=== PATIENT | female | born 1990 | race American Indian/Alaskan Native ===

== ENCOUNTER 2017-04-15 11:44 | Inpatient (IN) | payer MEDICAID ==
[~2017-04-15 11:44] MED LIST: Carboprost Tromethamine 250 MCG/1 ML Amp IM ONE; Methylergonovine 0.2 MG/1 ML Amp IM ONE; Morphine PF 1 MG/ML Amp ONE; Ondansetron 4 MG/2 ML SDV IV ONE; Oxytocin/Normal Saline 30 UNIT/500 ML BAG IV ONE; Phenylephrine 1% 10 MG/ML SDV IV ONE; Sodium Chloride 0.9% 10 ML Syringe IV ONE; ePHEDrine 50 MG/ML SDV IV ONE; fentaNYL 100 MCG/2 ML SDV ONE
[2017-04-15] MEDS ORDERED: Oxytocin/Normal Saline 60 UNIT/1,000 ML BAG ONE (12:02)
[2017-04-15] MEDS ORDERED: Carboprost Tromethamine 250 MCG/1 ML Amp IM ONE (12:03)
[2017-04-15] MEDS ORDERED: diphenhydrAMINE 50 MG/ML SDV IVPUSH PRN (12:03)
[2017-04-15] MEDS ORDERED: ceFAZolin 2 GM in Premix Bag 1 BAG IV ONE (12:03)
[2017-04-15] MEDS ORDERED: Acetaminophen 325 MG Tab PO PRN (12:03)
[2017-04-15] MEDS ORDERED: Ondansetron 4 MG/2 ML SDV IV PRN (12:03)
[2017-04-15] MEDS ORDERED: Methylergonovine 0.2 MG/1 ML Amp IM PRN (12:03)
[2017-04-15] MEDS ORDERED: ePHEDrine 50 MG/ML SDV IVPUSH PRN (12:03)
[2017-04-15] MEDS ORDERED: Misoprostol 400 MCG (4 X 100 MCG TAB) RECTAL PRN (12:03)
[2017-04-15] MEDS ORDERED: Naloxone 2 MG/2 ML Syringe IVPUSH PRN (12:03)
[2017-04-15] MEDS ORDERED: Acetaminophen/oxyCODONE 325-5 MG Tab PO PRN (12:03)
[2017-04-15] MEDS ORDERED: Diphtheria,Pertussis(Acell),Tetanus Vaccine 0.5 ML SDV IM ONE (12:03)
[2017-04-15] MEDS ORDERED: Morphine PF 1 MG/ML Amp ONE (12:07)
[2017-04-15] MEDS ORDERED: fentaNYL 100 MCG/2 ML SDV ONE (12:07)
[2017-04-15] MEDS ORDERED: Phenylephrine 1% 10 MG/ML SDV ONE (12:08)
[2017-04-15] MEDS ORDERED: Propofol 200 MG/20 ML SDV ONE (12:08)
[2017-04-15] MEDS ORDERED: Succinylcholine 200 MG/10 ML MDV ONE (12:09)
[2017-04-15] MEDS ORDERED: Sodium Chloride 0.9% 100 ML ONE (12:09)
[2017-04-15] MEDS ORDERED: Glycopyrrolate 0.2 MG/ML 2 ML SDV ONE (12:09)
[2017-04-15] MEDS ORDERED: Oxytocin/Normal Saline 30 UNIT/500 ML BAG IV SCH (12:15)
[2017-04-15] MEDS ORDERED: Methylergonovine 0.2 MG/1 ML Amp ONE (13:25)
[2017-04-15] MEDS ORDERED: Carboprost Tromethamine 250 MCG/1 ML Amp ONE (13:25)
[2017-04-15] MEDS ORDERED: Misoprostol 400 MCG (4 X 100 MCG TAB) ONE (13:28)
[2017-04-15] MEDS ORDERED: Misoprostol 400 MCG (4 X 100 MCG TAB) RECTAL ONE (13:30)
[2017-04-15] MEDS ORDERED: Oxytocin/Normal Saline 30 UNIT/500 ML BAG ONE (13:36)
[2017-04-15] MEDS: Lactated Ringers 1,000 ML IV SCH ×4 (14:10→21:45)
--- NOTE | 2017-04-15 15:13 | OBOUT ---
DATE: 04/15/2017 DATE AND TIME OF NST: Date: 04/15/2017. Time: 12:10 to 12:30. REASON FOR NST: 1. Intrauterine at 39 and 5/7 weeks. 2. Limited/insufficient care. 3. Previous , requests repeat low transverse . 4. Contractions. 5. Suspected cervical change. 6. History of fast labors and deliveries. 7. History of with breech presentation with precipitous delivery in the past. 8. Urinary tract infection-Escherichia coli in the first trimester. 9. Positive UDS for THC earlier in the . 10.Hepatitis C antibody positive. 11.G4, P2-1-0-3. NST INTERPRETATION: During this time period, tone baseline is approximately 140, and there are no accelerations noted during this time period, except for the possibility of 1 at the beginning of this nonstress test. It appears to be 15 x 15 beats per minute accelerations. Tocometer reveals 5 contractions. ASSESSMENT: 1. NST nonreactive by strict criteria concerns with variability are noted as well. 2. Tocometer with contractions. PLAN: Due to nonreassuring status, limited/insufficient care, history of fast labors and deliveries to the point that she had a with breech presentation, and previous x1, request repeat low transverse C- section. I will proceed to the OR as soon as crew is ready and available. IVs have been started. Monitoring will continue. We will await OR and proceed with as soon as possible. I did discuss with her risks, benefits, alternatives, and complication of including, but not limited to infection, bleeding, damage to internal organs such as bowel, bladder, tubes, uterus, ovaries, sometimes fetus, rarely needing blood transfusion or further surgery, and rare maternal or . She understands and agrees and wishes to proceed. Verbal and written consent obtained. Questions were answered. We will proceed as soon as OR crew is ready and available. [facility] /[id number]
[2017-04-15] MEDS: Ketorolac 30 MG/ML SDV IVPUSH SCH (18:10)
[2017-04-15] MEDS: Ferrous Sulfate 325 MG Tab PO SCH (18:30)
[2017-04-15] MEDS: Acetaminophen/oxyCODONE 325-5 MG Tab PO PRN (20:30)
[2017-04-15] MEDS: Docusate Sodium 100 MG Cap PO PRN (21:45)
[2017-04-16] MEDS: Ketorolac 30 MG/ML SDV IVPUSH SCH ×2 (00:27→06:29)
[2017-04-16] MEDS: Acetaminophen/oxyCODONE 325-5 MG Tab PO PRN ×5 (03:03→22:27)
--- NOTE | 2017-04-16 06:44 | PN ---
DATE: 04/16/2017 SUBJECTIVE: The patient did well overnight. She has had no issues per herself or nursing staff. She has been on bed rest and therefore has not ambulated. Her pain has been well controlled. She has had no lightheadedness or dizziness. She has no complaints this morning. Lochia is about the same as a period. OBJECTIVE: Vital Signs: Stable. She is afebrile. She did have 1 dip of hypotension throughout the night; however, did come back to normal. General: Alert and oriented x3, in no acute distress this morning. Resting comfortably in her hospital bed upon entering the room. Cardiac: Regular rate and rhythm. Pulmonary: No tachypnea or cyanosis noted. No increased working of breath. Abdomen: Appropriately tender. Some shadowing present on the right side of her incision dressing. Her fundus is approximately level of the umbilicus. There is no distention noted. Non-peritonitic. Extremities: No extremity swelling. No pedal edema noted. LABORATORY DATA: Platelets have remained within normal limits. Hemoglobin has trended from 11.0 preoperatively to 11.0 and 9.2 postoperatively thus far. We will check another one again today and again tomorrow to continue trend. ASSESSMENT AND PLAN: Josie Cervantes is in postop day #1 status post repeat section with uterine atony, requiring Methergine, Hemabate, Cytotec, and Pitocin and a box stitch intraoperatively. Her urine output has remained adequate having over 2 L overnight. She did have 1 bout of hypotension; therefore, we will watch her closely. We will continue to check her hemoglobins on a daily basis and increase frequency of concern. We will remove Kimble today, up and moving within the room and ambulating. Adequate pain control. Anticipate routine discharge. seen and agreed-GERDA MODL /[id number] MTDKristine
[2017-04-16] MEDS: Ferrous Sulfate 325 MG Tab PO SCH (08:27)
[2017-04-16] MEDS: Simethicone 80 MG Tab.Chew PO PRN ×3 (08:27→18:37)
[2017-04-16] MEDS: Prenatal Multivitamin with Calcium/Folic Acid/Iron Tab PO SCH (08:27)
[2017-04-16] MEDS: Docusate Sodium 100 MG Cap PO PRN ×2 (08:27→18:37)
[2017-04-16] MEDS ORDERED: Diphtheria,Pertussis(Acell),Tetanus Vaccine 0.5 ML SDV IM ONE (10:07)
[2017-04-16] MEDS: Ibuprofen 800 MG Tab PO PRN ×2 (14:29→22:26)
--- NOTE | 2017-04-16 19:34 | PCM.POSTAN ---
POST ANESTHESIA ASSESSMENT - MENTAL STATUS Mental Status: Alert - VITAL SIGNS Pulse Rate: 61 SaO2: 97 Resp Rate: 16 Blood Pressure: 90/52 Temperature: 37 C - RESPIRATORY Respiratory Status: Respiratory Rate WNL - CARDIOVASCULAR CV Status: Pulse Rate WNL - GASTROINTESTINAL GI Status: No Symptoms - POST OP HYDRATION Hydration Status: Adequate & Stable - OBSERVATIONS Free Text/Narrative:: Pt without c/o. No c/o PONV, no c/o PDPH, no persistent paresthesias, no c/o back pain,no post anesthesia complications noted.
[2017-04-17] MEDS: Acetaminophen/oxyCODONE 325-5 MG Tab PO PRN ×5 (02:37→23:32)
[2017-04-17] MEDS: Prenatal Multivitamin with Calcium/Folic Acid/Iron Tab PO SCH (08:21)
[2017-04-17] MEDS: Ferrous Sulfate 325 MG Tab PO SCH (08:21)
[2017-04-17] MEDS: Docusate Sodium 100 MG Cap PO PRN ×2 (08:22→19:23)
[2017-04-17] MEDS: Ibuprofen 800 MG Tab PO PRN ×2 (08:22→17:15)
[2017-04-17] MEDS: Simethicone 80 MG Tab.Chew PO PRN (19:22)
[2017-04-18] MEDS: Ibuprofen 800 MG Tab PO PRN (02:34)
[2017-04-18] MEDS: Acetaminophen/oxyCODONE 325-5 MG Tab PO PRN ×2 (03:58→09:09)
[2017-04-18] MEDS: Docusate Sodium 100 MG Cap PO PRN (09:08)
[2017-04-18] MEDS: Prenatal Multivitamin with Calcium/Folic Acid/Iron Tab PO SCH (09:08)
[2017-04-18] MEDS: Simethicone 80 MG Tab.Chew PO PRN (09:09)
[2017-04-18] MEDS: Ferrous Sulfate 325 MG Tab PO SCH (09:09)
--- NOTE | 2017-04-18 09:50 | PN ---
DATE: 04/17/2017 SUBJECTIVE: No acute events since rounding last. Her blood pressures have been borderline by nursing staff, however, she is asymptomatic without lightheadedness or dizziness. She is moving about and ambulating without issue. She is making adequate urine over 1800 mL per nursing. She is tolerating a diet without nausea or vomiting. Her discharge is manageable. OBJECTIVE: Vital Signs: Temperature is 36.8, heart rate 73, blood pressure 91/54, respirations 16, and pulse ox 99% on room air. General: Alert and orientated x3. Sleeping upon entering the room. Cardiac: Regular rate and rhythm. Pulmonary: No tachypnea or cyanosis noted. No increased working of breath. Abdomen: Soft, appropriately tender. Mild shadowing noted on the right side. Stable from previous exam. Uterus just inferior to the umbilicus. Extremities: No pedal edema noted. LABORATORY DATA: Urine output 1860 mL. Hemoglobin 9.0 from 9.2 the day prior, white blood cell count is 8.5, and platelets are 183. ASSESSMENT AND PLAN: Josie Cervantes is postop day #2 status post repeat section. She continues to do well at this time making adequate urine and is asymptomatic from her acute blood loss anemia secondary to hemorrhage. We will continue to watch her closely. Her blood pressure has been on the lower end of normal. However, again, we will continue to watch this as she has been asymptomatic and her heart rate is otherwise within normal limits. We will continue present management at this time. To be discussed with Dr. Hicks. seen and agreed-[facility] /[id number] JCARLOS
--- NOTE | 2017-04-18 09:59 | OR ---
DATE OF OPERATION: 04/15/2017 PREOPERATIVE DIAGNOSES: 1. Intrauterine at 39 weeks 5 days consistent with an 18-week ultrasound. 2. Previous low-transverse section. 3. Contractions. 4. Cervical change. 5. History of expeditious labor with a history of a vaginal after , secondary to insufficient care. 6. Urinary tract infection, Escherichia coli, complicating first-trimester . 7. Positive urinary drug screen for THC. 8. Hepatitis C antibody positive. 9. Limited and insufficient care. 10.G4, P2-1-0-3. POSTOPERATIVE DIAGNOSES: 1. Intrauterine at 39 weeks 5 days consistent with an 18-week ultrasound. 2. Previous low-transverse section. 3. Contractions. 4. Cervical change. 5. History of expeditious labor with a history of a vaginal after , secondary to insufficient care. 6. Urinary tract infection, Escherichia coli, complicating first-trimester . 7. Positive urinary drug screen for THC. 8. Hepatitis C antibody positive. 9. Limited and insufficient care. 10.G4, P3-1-0-4. PRIMARY SURGEON: Jony Hicks MD PHP ARCHITECT SURGEON: Luther Campbell PGY-III POSTOPERATIVE ATONY: Requiring Methergine, Hemabate, Cytotec, and B-Bernal box stitch. ESTIMATED BLOOD LOSS: 1200 ml. FLUIDS GIVEN: One liter of normal saline with Pitocin and 1 L of lactated Ringer. URINE OUTPUT: 150 mL. TIME: Start time is 1318 hours. End time is 1355 hours. 1324 hours for uterine incision and delivery time was 1325 hours. INTRAOPERATIVE FINDINGS: scores of 8 and 9 with a delivery of a normal female. INDICATION FOR PROCEDURE: Josie Cervantes is a 26-year-old female who presents with contractions and cervical change in 39 weeks 5 days with a history of a previous section and . She presented to the clinic for her routine care setting. She was ready to deliver a baby in which she was beyond 39 weeks with an inconsistent care, we elected to perform an elective repeat section. She was in agreement and wished to proceed with surgery at this time. DETAILS OF PROCEDURE: The patient was brought to the operating room, given spinal anesthetic. She was placed supine with a bump under the right side in a slight left lateral decubitus position. She was prepped and draped in standard sterile fashion. A procedural time-out was performed, and all were in agreement. Kimble was placed prior to draping. A low transverse Pfannenstiel incision was made through the skin. Electrocautery was used to dissect down to the fascia. The fascia was scored and opened laterally using Pendleton scissors with slight tilting towards this was found. The fascia was retracted off the muscle layer superiorly and then inferiorly down to the pubic bone. The muscles were then , and the peritoneum was bluntly opened. This was manually stretched open. Ramon retractor was placed. A low transverse uterine incision was made. No bladder flaps were needed to be created as it was not high on the uterus. The incision was made through the superficial portions of the uterus bluntly using manual entrance into the uterus. A blunt dissection was used to open the uterine incision laterally, and the was then delivered through the uterine incision. The cord was doubly clamped, cut, and transected. The was handed off to Dr. Blackburn and the Nursery team. Cord blood was obtained. Manual massage and Pitocin were given. The placenta was unable to be removed with traction. Therefore, manual removal was performed. The placenta removed intact. The uterus was debrided using a lap pad. The cervix was open inferiorly. The uterus was closed with #1 Vicryl in a running locking fashion. The second layer and imbricating layer were also performed with #1 Vicryl. There was some bleeding at the right side of the uterine incision which did require a 2-0 iopnmy-ll-cihtj stitch. The uterus continued to be atonic throughout this. Therefore, she received Hemabate, Methergine, Cytotec, and as well as remaining injection of Methergine into the uterus. This was still inadequate. Therefore, a B bernal box stitch was placed around the uterus to keep it compressed. It was then started to have a minimal tone to the uterus. There was some vaginal blood noted by the residential real estate assistant placing the Cytotec in the rectum. There was no obvious intraabdominal bleeding noted. Therefore, a [id number]-uc-[id number] stitch was placed in the peritoneum, and the fascia was closed with running 0 looped PDS x2 tying in the middle. Subcutaneous bleeding was obtained using electrocautery. Ady were used to reapproximate the skin edges. An [email or web address] was placed for dressing over top. The patient was transferred to PACU in stable condition by minimally tachycardic in the high 90s, and her blood pressures remained about 100 in the systolics. We will watch her closely as there is a high concern for continued ongoing bleeding and may require transfer of level of care if she continues to bleed. Dr. Jony Hicks was present, scrubbed, and directed all portions of this procedure. [facility] /[id number] MTDD
[2017-04-18 15:19] VITALS: BP 101/64
--- NOTE | 2017-04-19 03:08 | DISCH ---
DATE OF ADMISSION: 04/15/2017 DATE OF DISCHARGE: 04/18/2017 DISCHARGE DIAGNOSES: 1. Intrauterine at 39 weeks and 5 days consistent with 18 week 2 day ultrasound. Previous section with request for repeat low- transverse section. 2. Contractions. 3. Cervical change. 4. History of precipitous labor and deliveries and history of with breech presentation with her last . 5. Urinary tract infection complicating growing E coli. 6. Positive urinary drug screen for THC. 7. Hepatitis C antibody positive. 8. Limited and insufficient care. 9. G4, P2-1-0-3. 10.Uterine atony requiring Methergine, Hemabate, Cytotec, and B laws box stitch. PROCEDURE: section. DIET: Regular. ACTIVITY: Limited activity until followup appointment. No lifting more than 10 pounds. FOLLOWUP: Staple removal in 1 week; in [address] Hicks. HOSPITAL COURSE: The patient presented to the clinic at 39 weeks 5 days with a history of repeat caesarean section with cervical change and contractions. She was transferred over to the hospital and taken for section following discussion of the risks and benefits. section was complicated by uterine atony, requiring Methergine, Hemabate, Cytotec and a box stitch. Postoperatively, she did well. Her hemoglobins were trended in which there was down trend, however, not a significant jump at one time. She was tolerating a diet without any issues. She is up and moving about in her room. She was urinating following removal of her Kimble catheter. Her pain was well controlled. She was discharged on postoperative day #3. Follow up as listed above. seen and agreed with resident-GERDA MODL /[id number] JCARLOS
== END 2017-04-18 13:30 | disposition home or self-care (01) | DRG 765 ==
LOC: DL.OBCHECK 11:44 → UNDOADMIN 11:46 → DL.MS 11:46 → EEVIPCON 13:25 → DL.MS 13:25 → DL.OB 04-18 13:25 → UNDODISIN 04-18 13:30
PROVIDERS: ADMIT Family Medicine; ATTEND Family Medicine
PROC: 10D00Z1 Extraction of Products of Conception, Low, Open Approach (ICD-10-PCS; principal; 2017-04-15)
PROC: 4A1HXFZ Monitoring of Products of Conception, Cardiac Rhythm, External Approach (ICD-10-PCS; 2017-04-15)
PROC: 3E0R3BZ Introduction of Anesthetic Agent into Spinal Canal, Percutaneous Approach (ICD-10-PCS; 2017-04-15)
PROC: 3E0234Z Introduction of Serum, Toxoid and Vaccine into Muscle, Percutaneous Approach (ICD-10-PCS; 2017-04-15)
DX: O34.211 Maternal care for low transverse scar from previous cesarean delivery (principal); O72.1 Other immediate postpartum hemorrhage; O98.42 Viral hepatitis complicating childbirth; O99.324 Drug use complicating childbirth; O09.33 Supervision of pregnancy with insufficient antenatal care, third trimester; B19.20 Unspecified viral hepatitis C without hepatic coma; F12.90 Cannabis use, unspecified, uncomplicated; Z23 Encounter for immunization; Z37.0 Single live birth; Z3A.39 39 weeks gestation of pregnancy
CPT/HCPCS: 01961; 36415; 80305; 85025; 85027; 86850; 86900; 86901; 86920; 86922; 90715; A9270-GY; J0690; J1885; J2210; J2274; J2370; J2405; J2590; J3010; J7050; J7120

== ENCOUNTER 2017-10-07 08:42 | Emergency (ER) | payer MEDICAID ==
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
[2017-10-07 10:05] LABS: ANION GAP 12.8; CHLORIDE,CL 101 mmol/L (101-111); SODIUM,NA 134 mmol/L (135-145)
[2017-10-07 10:09] VITALS: BP 113/72
== END 2017-10-07 10:34 | disposition home or self-care (01) ==
LOC: DL.ED 08:42
DX: J06.9 Acute upper respiratory infection, unspecified (principal); F17.210 Nicotine dependence, cigarettes, uncomplicated
CPT/HCPCS: 36415; 80053; 85025; 87804; 99284

== ENCOUNTER 2018-12-31 11:06 | Emergency (ER) | payer MEDICAID, SELFPAY ==
[2018-12-31 11:13] VITALS: BP 106/74
--- NOTE | 2018-12-31 11:22 | EDM.PDOC ---
ED HPI GENERAL MEDICAL PROBLEM - General Chief Complaint: Fever Stated Complaint: SICK FOR A WEEK, NOT GETTING ANY BETTER Time Seen by Provider: 12/31/18 11:21 Source of Information: Reports: Patient, RN, RN Notes Reviewed History Limitations: Reports: No Limitations - History of Present Illness INITIAL COMMENTS - FREE TEXT/NARRATIVE: Pt to ER with c/o fever, chills, nasal congestion, sore throat, cough, nausea for over 1 week. She states everyone in her house is sick. She states she has been taking Mucinex but denies use of Tylenol or Ibuprofen. Denies diarrhea or vomiting. Onset: Gradual Duration: Constant, Getting Worse Location: Reports: Head, Chest - Related Data Allergies Allergy/AdvReac Type Severity Reaction Status Date / Time No Known Allergies Allergy Unverified 10/07/17 08:58 Home Meds: Home Meds . 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 x2 Musculoskeletal History: Reports: None Neurological History: Reports: None Psychiatric History: Reports: Depression Endocrine/Metabolic History: Reports: None Hematologic History: Reports: None Immunologic History: Reports: None Oncologic (Cancer) History: Reports: None Dermatologic History: Reports: None - Infectious Disease History Infectious Disease History: Reports: Hepatitis C - Past Surgical History Head Surgeries/Procedures: Reports: None Female Surgical History: Reports: Section, Dilitation & Evacuation Social & Family History - Family History Family Medical History: Noncontributory - Tobacco Use Smoking Status *Q: Never Smoker - Caffeine Use Caffeine Use: Reports: None - Recreational Drug Use Recreational Drug Use: Yes Recreational Drug Type: Reports: Marijuana/Hashish Recreational Drug Use Frequency: Socially ED ROS ENT - Review of Systems Review Of Systems: ROS reveals no pertinent complaints other than HPI. ED EXAM, ENT - Physical Exam Exam: See Below Exam Limited By: No Limitations General Appearance: Alert, WD/WN, Mild Distress Eye Exam: Bilateral Eye: EOMI, Normal Inspection Ears: Normal External Exam, Normal Canal, Hearing Grossly Normal, TM Dullness Nose: Normal Inspection, Clear Rhinorrhea Mouth/Throat: Normal Inspection, Normal Gums, Normal Lips, Normal Oropharynx, Normal Teeth Head: Atraumatic, Normocephalic Neck: Normal Inspection, Supple, Non-Tender, Full Range of Motion Respiratory/Chest: No Respiratory Distress, Lungs Clear, Normal Breath Sounds, No Accessory Muscle Use, Chest Non-Tender Cardiovascular: Normal Peripheral Pulses, Regular Rate, Rhythm, No Edema, No Gallop, No JVD, No Murmur, No Rub GI/Abdominal: Normal Bowel Sounds, Soft, Non-Tender (Female) Exam: Deferred Rectal (Female) Exam: Deferred Back: Normal Inspection, Full Range of Motion Extremities: Normal Inspection, Normal Range of Motion, Non-Tender, No Pedal Edema, Normal Capillary Refill Neurological: Alert, Oriented, CN II-XII Intact, Normal Cognition, Normal Gait, Normal Reflexes, No Motor/Sensory Deficits Psychiatric: Normal Affect, Normal Mood Skin: Warm, Dry, Intact, Normal Color, No Rash Lymphatic: No Adenopathy Course - Vital Signs Last Recorded V/S: Last Vital Signs Temp 97.7 F 12/31/18 11:10 Pulse 98 12/31/18 11:10 Resp 16 12/31/18 11:10 BP 106/74 12/31/18 11:10 Pulse Ox 99 12/31/18 11:10 - Orders/Labs/Meds Labs: Influenza A: Negative Influenza B: Negative Departure - Departure Time of Disposition: 11:51 Disposition: Home, Self-Care 01 Condition: Fair Clinical Impression: Sinusitis Qualifiers: Sinusitis location: unspecified location Chronicity: acute Recurrence: not specified as recurrent Qualified Code(s): J01.90 - Acute sinusitis, unspecified - Discharge Information *PRESCRIPTION DRUG MONITORING PROGRAM REVIEWED*: No *COPY OF PRESCRIPTION DRUG MONITORING REPORT IN PATIENT LANCE: No Instructions: Sinusitis, Adult, [id number] Forms: ED Department Discharge Additional Instructions: May use Tylenol and/or Ibuprofen as directed for pain/fever Drink plenty of water RX: Augmentin Follow up with your primary care facility of no improvement
[2018-12-31] MEDS ORDERED: Amoxicillin/Clavulanate K 875-125 MG Tab PO ONE (11:54)
[2018-12-31] MEDS ORDERED: Amoxicillin/Clavulanate K 875-125 MG Tab ONE (11:55)
== END 2018-12-31 12:00 | disposition home or self-care (01) ==
LOC: DL.ED 11:06
DX: J01.90 Acute sinusitis, unspecified (principal)
CPT/HCPCS: 87804; 99283; A9270

== ENCOUNTER 2022-04-23 20:29 | Emergency (ER) | payer MEDICAID ==
[2022-04-23 21:32] LABS: ANION GAP 14.6 mEq/L (7-13); CHLORIDE,CL 101 mmol/L (98-107); SODIUM,NA 137 mmol/L (136-145)
[2022-04-23 21:37] LABS: ESTIMATED GFR 104 mL/min (>=60)
[2022-04-23 21:38] LABS: AMPHETAMINES,URINE NEGATIVE (NEGATIVE); BARBITURATES,URINE NEGATIVE (NEGATIVE); BENZODIAZEPINE,URINE NEGATIVE (NEGATIVE); MDMA (ECSTASY), URINE NEGATIVE (NEGATIVE); METHADONE,URINE NEGATIVE (NEGATIVE); METHAMPHETAMINES,URINE NEGATIVE (NEGATIVE); OPIATES,URINE NEGATIVE (NEGATIVE); OXYCODONE,URINE NEGATIVE (NEGATIVE); PHENCYCLIDINE,URINE NEGATIVE (NEGATIVE); TCA,URINE NEGATIVE (NEGATIVE)
[2022-04-23 22:00] LABS: CORONAVIRUS COVID-19 NAA NEGATIVE (NEGATIVE)
[2022-04-23] MEDS ORDERED: Iopamidol 612 MG/ML 100 ML Bottle IVPUSH ONE (22:30)
[2022-04-24] MEDS ORDERED: Piperacillin/Tazobactam 3.375 GM in Sodium Chloride 0.9% 100 ML IV ONE (00:28)
[2022-04-24] MEDS ORDERED: Sodium Chloride 0.9% 1,000 ML IV ONE (00:28)
[2022-04-24 01:08] VITALS: BP 106/75; PULSE 62
== END 2022-04-24 01:06 ==
LOC: DL.ED 20:29
DX: K35.30 Acute appendicitis with localized peritonitis, without perforation or gangrene (principal); Z86.16 Personal history of COVID-19; Z87.891 Personal history of nicotine dependence; Z20.822 Contact with and (suspected) exposure to COVID-19
CPT/HCPCS: 0240U; 36415; 74177; 80053; 80305-QW; 81025; 82150; 83690; 85025; 96374; 99284; 99285-25; J2543; J7030; Q9967

== ENCOUNTER 2023-04-11 01:33 | Inpatient (IN) | payer MEDICAID ==
[2023-04-11] MEDS: Lactated Ringers 1,000 ML IV SCH ×4 (02:00→13:17)
[2023-04-11 02:02] LABS: HEMATOCRIT 36.3 % (37.0-47.0); HEMOGLOBIN 11.9 g/dL (12.0-16.0); MEAN CORPUSCULAR HGB CONC 32.8 g/dL (33.0-35.0); MEAN CORPUSCULAR VOLUME 94.5 fL (80-100); RED BLOOD CELL COUNT 3.84 10^6/uL (4.2-5.4); WHITE BLOOD CELL COUNT,WBC 9.9 10^3/uL (5.0-10.0)
[2023-04-11] MEDS ORDERED: Misoprostol 400 MCG (4 X 100 MCG TAB) RECTAL PRN (02:14)
[2023-04-11] MEDS ORDERED: Naloxone 2 MG/2 ML Syringe IVPUSH PRN (02:14)
[2023-04-11] MEDS ORDERED: Methylergonovine 0.2 MG/1 ML Amp IM PRN (02:14)
[2023-04-11] MEDS ORDERED: Acetaminophen/oxyCODONE 325-5 MG Tab PO PRN (02:14)
[2023-04-11] MEDS ORDERED: Ondansetron 4 MG/2 ML SDV IVPUSH PRN (02:14)
[2023-04-11] MEDS ORDERED: Carboprost Tromethamine 250 MCG/1 ML Amp IM PRN (02:14)
[2023-04-11] MEDS ORDERED: Acetaminophen 325 MG Tab PO PRN (02:14)
[2023-04-11] MEDS ORDERED: ePHEDrine 50 MG/ML SDV IVPUSH PRN (02:14)
[2023-04-11] MEDS ORDERED: diphenhydrAMINE 50 MG/ML SDV IVPUSH PRN (02:14)
[2023-04-11] MEDS ORDERED: ceFAZolin 2 GM Vial IVPUSH ONE (02:14)
[2023-04-11] MEDS ORDERED: Tranexamic Acid 1,000 MG in Sodium Chloride 0.9% 100 ML IV PRN (02:14)
[2023-04-11] MEDS ORDERED: Lactated Ringers 1,000 ML IV SCH (02:15)
[2023-04-11] MEDS ORDERED: Ketorolac 30 MG/ML SDV IVPUSH SCH (02:30)
[2023-04-11] MEDS ORDERED: Oxytocin/Normal Saline 30 UNIT/500 ML BAG IV SCH (02:30)
[2023-04-11 02:40] LABS: AMPHETAMINES,URINE NEGATIVE (NEGATIVE); BARBITURATES,URINE NEGATIVE (NEGATIVE); BENZODIAZEPINE,URINE NEGATIVE (NEGATIVE); MDMA (ECSTASY), URINE NEGATIVE (NEGATIVE); METHADONE,URINE NEGATIVE (NEGATIVE); METHAMPHETAMINES,URINE NEGATIVE (NEGATIVE); OPIATES,URINE NEGATIVE (NEGATIVE); OXYCODONE,URINE NEGATIVE (NEGATIVE); PHENCYCLIDINE,URINE NEGATIVE (NEGATIVE); TCA,URINE NEGATIVE (NEGATIVE)
[2023-04-11] MEDS ORDERED: Ketorolac 30 MG/ML SDV IVPUSH ONE (05:24)
[2023-04-11] MEDS: Simethicone 80 MG Tab.Chew PO SCH ×4 (09:31→23:19)
[2023-04-11] MEDS: Prenatal Multivitamin with Calcium/Folic Acid/Iron Tab PO SCH (09:31)
[2023-04-11] MEDS: Ketorolac 30 MG/ML SDV IVPUSH SCH ×3 (11:30→23:19)
[2023-04-11] MEDS: Docusate Sodium 100 MG Cap PO PRN (23:19)
[2023-04-11] MEDS: Acetaminophen/oxyCODONE 325-5 MG Tab PO PRN (23:19)
[2023-04-12] MEDS: Acetaminophen/oxyCODONE 325-5 MG Tab PO PRN ×4 (03:25→20:31)
[2023-04-12 06:09] LABS: HEMATOCRIT 28.6 % (37.0-47.0); HEMOGLOBIN 9.3 g/dL (12.0-16.0); MEAN CORPUSCULAR HEMOGLOBIN 31.3 pg (27.0-34.0); MEAN CORPUSCULAR HGB CONC 32.5 g/dL (33.0-35.0); MEAN CORPUSCULAR VOLUME 96.3 fL (80-100); RED BLOOD CELL COUNT 2.97 10^6/uL (4.2-5.4); WHITE BLOOD CELL COUNT,WBC 10.1 10^3/uL (5.0-10.0)
[2023-04-12] MEDS: Simethicone 80 MG Tab.Chew PO SCH ×5 (07:34→20:31)
[2023-04-12] MEDS: Docusate Sodium 100 MG Cap PO PRN ×2 (07:35→20:31)
[2023-04-12] MEDS: Ibuprofen 800 MG Tab PO PRN ×2 (07:35→17:26)
[2023-04-12] MEDS: Prenatal Multivitamin with Calcium/Folic Acid/Iron Tab PO SCH ×2 (07:35→08:38)
[2023-04-13] MEDS: Ibuprofen 800 MG Tab PO PRN (02:07)
[2023-04-13] MEDS: Acetaminophen/oxyCODONE 325-5 MG Tab PO PRN ×3 (04:36→13:00)
[2023-04-13] MEDS: Prenatal Multivitamin with Calcium/Folic Acid/Iron Tab PO SCH (08:47)
[2023-04-13] MEDS: Docusate Sodium 100 MG Cap PO PRN (08:47)
[2023-04-13] MEDS: Simethicone 80 MG Tab.Chew PO SCH ×2 (08:49→13:01)
[2023-04-13 15:26] VITALS: BP 113/75; PULSE 77
[2023-04-13] MEDS ORDERED: EPINEPHrine 1 MG/ML SDV ONE (15:38)
[2023-04-13] MEDS ORDERED: Ondansetron 4 MG/2 ML SDV IV ONE (15:38)
[2023-04-13] MEDS ORDERED: Famotidine 20 MG/2 ML SDV IV ONE (15:38)
[2023-04-13] MEDS ORDERED: Tranexamic Acid 1,000 MG in Sodium Chloride 0.9% 100 ML IV ONE (15:38)
[2023-04-13] MEDS ORDERED: Sodium Chloride 0.9% 20 ML SDV ONE (15:38)
[2023-04-13] MEDS ORDERED: fentaNYL 100 MCG/2 ML SDV ONE (15:38)
[2023-04-13] MEDS ORDERED: ceFAZolin 2 GM Vial IVPUSH ONE (15:38)
[2023-04-13] MEDS ORDERED: Dexamethasone 4 MG/ML SDV IV ONE (15:38)
== END 2023-04-13 15:39 | disposition home or self-care (01) | DRG 787 ==
LOC: DL.OBCHECK 01:33 → DL.OB 01:52 → OBSVTOIN 03:10 → DL.OB 03:10
PROVIDERS: ADMIT Family Medicine; ATTEND Family Medicine
PROC: 10D00Z1 Extraction of Products of Conception, Low, Open Approach (ICD-10-PCS; principal; 2023-04-11)
DX: O42.02 Full-term premature rupture of membranes, onset of labor within 24 hours of rupture (principal); O99.324 Drug use complicating childbirth; F12.90 Cannabis use, unspecified, uncomplicated; O43.813 Placental infarction, third trimester; Z3A.37 37 weeks gestation of pregnancy; O34.211 Maternal care for low transverse scar from previous cesarean delivery; O69.81X0 Labor and delivery complicated by cord around neck, without compression, not applicable or unspecified; O90.81 Anemia of the puerperium; Z90.49 Acquired absence of other specified parts of digestive tract; Z86.16 Personal history of COVID-19; Z37.0 Single live birth
CPT/HCPCS: 01961; 36415; 51702; 80305-QW; 85027; 86850; 86900; 86901; 94010; A9270-GY; J0171; J0690; J1100; J1885; J2405; J2590; J3010; J3490; J7120